=== PATIENT | female | born 1990 | race Native Hawaiian/Other Pacific Islander ===

== ENCOUNTER 2019-08-14 22:00 | Emergency (ER) | payer OTHER ==
[~2019-08-14] VITALS: Ht 165.1 cm; Wt 95.3 kg
[2019-08-14 22:05] VITALS: TEMP 98.3
[2019-08-14 23:40] VITALS: BP 135/75
== END 2019-08-14 23:45 | disposition home or self-care (01) ==
LOC: ED 22:00
DX: L29.9 Pruritus, unspecified (principal); T63.441A Toxic effect of venom of bees, accidental (unintentional), initial encounter
CPT/HCPCS: 96360; 96375; 99284; J1200; J2930

== ENCOUNTER 2019-11-21 16:05 | Emergency (ER) | payer OTHER ==
[~2019-11-21] VITALS: Ht 165.1 cm; Wt 104.3 kg
[2019-11-21 16:39] LABS: PLATELET COUNT 287 K/uL (152-353)
[2019-11-21 16:49] LABS: POTASSIUM 3.4 mmol/L (3.6-5.2); SODIUM 139 mmol/L (136-145)
[2019-11-21 16:56] LABS: PARTIAL THROMBOPLASTIN TIME 24.9 SECONDS (24.5-33.6)
[2019-11-21 17:24] VITALS: BP 120/71; TEMP 99
== END 2019-11-21 17:25 | disposition home or self-care (01) ==
LOC: ED 16:05
PROVIDERS: Hospitalist
DX: R07.89 Other chest pain (principal); M94.0 Chondrocostal junction syndrome [Tietze]
CPT/HCPCS: 80053; 82550; 83880; 84484; 85027; 85610; 85730; 93005; 96374; 99284; J1885

== ENCOUNTER 2020-05-13 10:12 | Inpatient (IN) | payer OTHER ==
[~2020-05-13] VITALS: Ht 162.6 cm; Wt 108.9 kg
[2020-05-13 10:56] VITALS: BP 124/75; TEMP 98.5; Ht 162.6 cm; Wt 108.9 kg
[2020-05-13 11:05] LABS: PLATELET COUNT 222 K/uL (152-353)
[2020-05-13 11:26] LABS: POTASSIUM 3.5 mmol/L (3.6-5.2)
[2020-05-13 12:00] VITALS: BP 124/75; TEMP 98.5
[2020-05-13] MEDS ORDERED: LORA1TAB17 PO (12:12)
[2020-05-13 16:00] VITALS: BP 107/62; TEMP 99.7
[2020-05-13 20:00] VITALS: BP 112/62; TEMP 100
[2020-05-14] VITALS: BP 113/59; TEMP 99.3
[2020-05-14 04:00] VITALS: BP 98/46; TEMP 98.7
[2020-05-14 07:04] LABS: PLATELET COUNT 197 K/uL (152-353)
[2020-05-14 07:19] LABS: POTASSIUM 3.5 mmol/L (3.6-5.2)
[2020-05-14 08:00] VITALS: BP 120/45; TEMP 99.1
[2020-05-14 12:00] VITALS: BP 90/70; TEMP 98.9
[2020-05-14 16:00] VITALS: BP 97/42; TEMP 99.4
[2020-05-14 20:00] VITALS: BP 112/47; TEMP 99.3
[2020-05-15] VITALS: BP 109/47; TEMP 99.1
[2020-05-15 04:00] VITALS: BP 111/56; TEMP 100.1
[2020-05-15 08:00] VITALS: BP 119/55; TEMP 99.2
[2020-05-15 09:16] LABS: PLATELET COUNT 203 K/uL (152-353)
[2020-05-15 09:35] LABS: POTASSIUM 3.9 mmol/L (3.6-5.2)
[2020-05-15 12:00] VITALS: BP 120/48; TEMP 98.8
[2020-05-15 16:00] VITALS: BP 122/65; TEMP 98.5
[2020-05-15 20:00] VITALS: BP 108/58; TEMP 98.1
[2020-05-16] VITALS (7 sets, daily range): BP systolic 105–122; BP diastolic 43–70; TEMP 97.7–99.1
[2020-05-16 05:43] LABS: PLATELET COUNT 216 K/uL (152-353)
[2020-05-16 06:03] LABS: POTASSIUM 3.6 mmol/L (3.6-5.2)
[2020-05-17 03:30] VITALS: BP 102/58; TEMP 99.2
[2020-05-17 08:00] VITALS: BP 126/60; TEMP 99.2
[2020-05-17 08:02] LABS: PLATELET COUNT 240 K/uL (152-353)
[2020-05-17 08:21] LABS: POTASSIUM 3.5 mmol/L (3.6-5.2)
[2020-05-17 12:00] VITALS: BP 114/60; TEMP 98.1
[2020-05-17 16:00] VITALS: BP 114/72; TEMP 98.4
[2020-05-17 20:00] VITALS: BP 107/58; TEMP 98.6
[2020-05-18] VITALS: BP 110/55; TEMP 98.4
[2020-05-18 04:00] VITALS: BP 90/52; TEMP 98.2
[2020-05-18 06:32] LABS: PLATELET COUNT 233 K/uL (152-353)
[2020-05-18 06:48] LABS: POTASSIUM 3.5 mmol/L (3.6-5.2)
[2020-05-18 08:00] VITALS: BP 120/63; TEMP 98.6
== END 2020-05-18 12:00 | disposition home or self-care (01) | DRG 603 ==
LOC: MED/SURG 10:12
PROVIDERS: ADMIT Family Medicine; ATTEND Family Medicine
DX: L02.31 Cutaneous abscess of buttock (principal); L02.214 Cutaneous abscess of groin; R50.81 Fever presenting with conditions classified elsewhere; A46 Erysipelas; R11.0 Nausea; E66.8 Other obesity; E28.2 Polycystic ovarian syndrome; R94.5 Abnormal results of liver function studies; L03.314 Cellulitis of groin
CPT/HCPCS: 36415; 80053; 80074; 80202; 81000; 82550; 83735; 84100; 84443; 85027; 87040; 87070; 87077; 87185; 87186; 87205; 96365; 96366; 96367; 96375; J1170; J1885; J2405; J2543; J2550; J3370; J3490

== ENCOUNTER 2020-07-24 22:04 | Inpatient (IN) | payer OTHER ==
[~2020-07-24] VITALS: Ht 170.2 cm; Wt 106.7 kg
[~2020-07-24 22:04] MED LIST: LORA1TAB17 PO
[2020-07-24 22:12] VITALS: BP 153/88; TEMP 98.6
[2020-07-24 23:00] VITALS: BP 139/70
[2020-07-24 23:21] LABS: POTASSIUM 3.3 mmol/L (3.6-5.2)
[2020-07-24 23:29] LABS: PLATELET COUNT 279 K/uL (152-353)
[2020-07-24 23:30] VITALS: BP 141/81
[2020-07-25] VITALS (10 sets, daily range): BP systolic 90–134; BP diastolic 35–80; TEMP 98.2–98.4; Ht 170.2 cm; Wt 106.7 kg
--- NOTE | 2020-07-25 03:02 | NUR ---
07/25/20 0134: RECEIVED PT FROM ER BY WHEELCHAIR TO ROOM 1110. PT ALERT, ORIENTED X4. PT ADMITTED WITH CELLULITIS AND ABCESSES. PT HAS ABCESS UNDER BOTH ARMPITS, LEFT SIDE OF ABD, INNER THIGH OF LEFT LEG, AND ON VAGINA. PT HAS HX OF HIDRADENITIS SUPPURATIVA.
--- NOTE | 2020-07-25 06:13 | NUR ---
PT SLEEPING, NO DISTRESS OR PAIN NOTED.
[2020-07-25] MEDS ORDERED: DOXYCYCL HYC100 MG PO (10:05)
[2020-07-25] MEDS ORDERED: CLINDAMYCIN 1% EX (10:06)
[2020-07-25] MEDS ORDERED: CLINDAMYCIN HY300 MG PO (10:07)
[2020-07-25] MEDS ORDERED: TRAMADOL HYDROC50 MG PO (10:07)
[2020-07-25] MEDS ORDERED: LORA1TAB17 PO (10:08)
[2020-07-25] MEDS ORDERED: MUPIROCIN2 % EX (10:09)
--- NOTE | 2020-07-25 10:30 | NUR ---
PATIENT REQUESTING PAIN MEDICATION 1 MG OF DILAUDID GIVEN IVP PER MD ORDERS. NAD NOTED. PATIENT FELL ASEEP. BED IN LOWEST POSITION. CALL LIGHT WITHIN REACH. WILL CONTINUE TO MONITOR.
--- NOTE | 2020-07-25 13:19 | NUR ---
PT HAS ABSECESS TO LT LABIA MEASURES 1CMX0.9CMX0.5CM HARD AREA MEASURES 2.7SMEMH7.5 INCH S/P I&D ON 07/24/20 FROM [facility]. SPOKE TO TREASURE FROM THAT OFFICE FOR ORDER CLARIFICATION ON WOUND CARE SHE STATED THE ATTENDING CAN WRITE THE ORDERS. DR THOMPSON NOTIFIED NEW ORDERS GIVEN FOR WET TO DRY DRESSING CHANGE BID. MOIST 1/4 INCH IODAFORM WITH 0.25% DAKINS SOLUTION BID. ORDER CARRIED OUT. PAIN 10/10 DURING DRSSING CHANGE WITH PRN IV MEDICATION.
--- NOTE | 2020-07-25 15:11 | NUR ---
ALL AREAS ARE RED IN COLOR AND WARM TO TOUCH 1. LEFT LABIA ABSCESS 1.0CM X0.9CMX 0.5 CM. / HARD AREA NOTED AROUND INCISION 2. INNER LEFT THIGH ABSCESS BULS EYE LIKE APPEARANCE OUTER RING LIGHT RED 5.4CM X 6.2 CM/ MIDDLE RING 0.6CMX 1.6 CM / BLACK CENTER 0.4 CM X0.5CM SOFT AROUND ABSCESS 3. RT SIDE OF SUPRA PUBIC AREA ABSCESS. BULLS EYE APPEARANCE OUTER RING LIGHT RED WARM TO TOUCH. 1.6CMX 2.5CM INNER RING DARK RED PURPLEISH COLOR 0.4CMX0.6CM 4. ABSCESS UNDER LEFT BREAST RED HARD WARM TO TOUCH 3.7CM X5.4CM 5. ABSCESS LEFT AXILLARY RED HARD WARM TO TOUCH 5.0CM X 3.4CM 6. ABSCESS TO RT AXILLARY CLUSTER OF 3 HARD RED WARM TO TOUCH 6.0 CM X 3.0CM 7. ABSCESS UNDER RT BREAST RED HARD WARM TO TOUCH 3.6CMX 4.0CM
--- NOTE | 2020-07-25 16:30 | NUR ---
PATIENT C/O PAIN. PRN DILAUDID GIVEN PER MD ORDERS. PT TOLERATED WELL. NAD NOTED. WILL CONTINUE TO MONITOR.
--- NOTE | 2020-07-25 22:27 | NUR ---
07/25/20 2019: PT REQESTED PAIN MED FOR PAIN IN HER LABIA. HYDROCDONE 1 TAB GIVEN PO.
--- NOTE | 2020-07-25 22:29 | NUR ---
07/25/20 2200: PT C/O NAUSEA ZOFRAN 4 MG GIVEN IV.
[2020-07-26 04:09] VITALS: BP 94/43; TEMP 98.1
[2020-07-26 05:43] LABS: PLATELET COUNT 251 K/uL (152-353)
[2020-07-26 05:54] LABS: POTASSIUM 4.1 mmol/L (3.6-5.2)
[2020-07-26 08:00] VITALS: BP 107/51; TEMP 98.2
--- NOTE | 2020-07-26 09:30 | NUR ---
IN PT RM FOR MORNING ASSESSMENT AND MEDICATION, PT LYING IN HF, NAD NOTED, NONLABORED BREATHING, 20G TO LT AC INTACT AND SL, ABCESSES NOTED TO LT LABIA AREA PT STATES DRESSING CAME OUT WHEN SHE AMBULATED TO THE RESTROOM THIS AM, DRESSING WILL BE REPACKED AT 1200, ABCESS NOTED TO LT INNER THIGH NO OPENED AND NO DRAINAGE WITH REDNESS AROUND SITE, ABCESS NOTED UNDER LT BREAST, LT AXILLARY AND RT AXILLARY NO OPEN AREAS OR DRAINAGE NOTED TO SITES, PT STATES HER PAIN TO THE LT LABIA ABCESS IS A 6 1/2 AT THIS TIME AND TENDER, SHE STATES HER OTHER ABCESSES DO NOT HAVE PAIN BUT ARE TENDER TO THE TOUCH, NO FURTHER COMPLAINTS AT THIS TIME, WILL CONTINUE TO ARABELLA, PLACED CALL LIGHT WITHIN REACH
[2020-07-26 12:00] VITALS: BP 103/53; TEMP 98.2
--- NOTE | 2020-07-26 13:00 | NUR ---
IN PT RM FOR DRESSING CHANGE TO LT LABIA, NO PACKING NOTED AT THIS TIME TO AREA, PT STATES PACKING CAME OUT THIS AM WHEN SHE AMBULATED TO THE BATHROOM, AREA CLEANED WITH NS AND GAUZE, IODAFORM SOAKED WITH DAKINS SOLUTION, WHEN ATTEMPTING TO PACK IODAFORM IN ABCESS, UNABLE TO PUSH ANY IN ONLY THE VERY TIP IS ABLE TO BE INSERTED, WOUND RED WITH NO DRAINAGE NOTED AT THIS TIME, IODAFORM REMOVED AND THE TIP OF GAUZE PLACED TO OPENING OF ABCESS AND ANOTHER GAUZE PLACED ON TOP AND TAPED TO GROIN AREA. PT TOLERATED PROCEDURE WITH MODERATE PAIN WHILE ATTEMPING TO PACK WOUND. NO FURHTER NEEDS AT THIS TIME
--- NOTE | 2020-07-26 13:10 | NUR ---
PT STATES SHE WENT TO THE BATHROOM TO URINATE AND SOAKED THE GAUZE AND PACKING AND REMOVED DRESSING AT THIS TIME, WILL NOTIFY DR. THOMPSON
--- NOTE | 2020-07-26 13:15 | NUR ---
INFORMED DR. THOMPSON OF GAUZE BEING SATURATED AFTER PT USING THE RESTROOM AND ALSO HOW WE WERE UNABLE TO PACK ABCESS, DR. THOMPSON STATES FOR PT TO NOT PACK IT AND TO KEEP THE WOUND CLEAN AND DRY AND FOLLOWUP WITH PCP FOR FURTHER INSTRUCTIONS, NO FURTHER ORDERS GIVEN AT THIS TIME
--- NOTE | 2020-07-26 14:00 | NUR ---
GAVE PT DISCHARGE PAPERS WITH INSTRUCTIONS, PT VERBALIZED UNDERSTANDING, PT STATES SHE WILL MAKE FOLLOW-UP APPT WITH DR. DIANA AND HER PLASTIC SURGEON, GAVE PT PAIN MEDICATION PRESCRIPTION, EDUCATED PT TO KEEP ABCESS CLEAN AND DRY MUCH POSSIBLE AND ONLY TOUCH AREAS WITH CLEAN DRY HANDS, IV REMOVED WITH CATHETER INTACT
--- NOTE | 2020-07-26 14:18 | NUR ---
PT DC VIA AMBULATION WITH PRIVATE VEHICLE, NAD NOTED
== END 2020-07-26 14:20 | disposition home or self-care (01) | DRG 607 ==
LOC: ED 22:04 → MED/SURG 23:41
PROVIDERS: ADMIT Emergency Medicine Emergency Medical Services; ATTEND Internal Medicine Endocrinology, Diabetes & Metabolism
DX: L73.2 Hidradenitis suppurativa (principal); E87.6 Hypokalemia; D72.818 Other decreased white blood cell count; E66.8 Other obesity; Z68.36 Body mass index [BMI] 36.0-36.9, adult; F41.8 Other specified anxiety disorders; N76.4 Abscess of vulva; R73.9 Hyperglycemia, unspecified; L02.412 Cutaneous abscess of left axilla; L02.411 Cutaneous abscess of right axilla; L02.416 Cutaneous abscess of left lower limb; L02.211 Cutaneous abscess of abdominal wall
CPT/HCPCS: 36415; 80048; 80053; 83605; 85027; 87040; 87635; 96360; 96365; 96375; 99284; J1170; J1650; J2405; J2543; J2550; J3490; U0003

== ENCOUNTER 2020-12-25 09:14 | Emergency (ER) | payer OTHER ==
[~2020-12-25] VITALS: Ht 170.2 cm; Wt 106.6 kg
[~2020-12-25 09:14] MED LIST changes: +CLINDAMYCIN 1% EX; +CLINDAMYCIN HY300 MG PO; +DOXYCYCL HYC100 MG PO; +MUPIROCIN2 % EX; +TRAMADOL HYDROC50 MG PO
[2020-12-25 09:20] VITALS: TEMP 97.1
[2020-12-25 10:36] VITALS: BP 124/78
== END 2020-12-25 10:36 | disposition home or self-care (01) ==
LOC: ED 09:14
DX: S29.011A Strain of muscle and tendon of front wall of thorax, initial encounter (principal); X50.9XXA Other and unspecified overexertion or strenuous movements or postures, initial encounter; Y92.828 Other wilderness area as the place of occurrence of the external cause
CPT/HCPCS: 96372; 99283; J1885

== ENCOUNTER 2021-08-17 23:54 | Emergency (ER) | payer OTHER ==
[~2021-08-17] VITALS: Ht 170.2 cm; Wt 95.7 kg
[2021-08-18 01:03] VITALS: BP 110/78; TEMP 98.5
== END 2021-08-18 01:08 | disposition home or self-care (01) ==
LOC: ED 23:54
DX: L73.2 Hidradenitis suppurativa (principal)
CPT/HCPCS: 96372; 99283; J0696; J1885; J2405; J2930